=== PATIENT | male | born 1985 | race African-American/Black ===

== ENCOUNTER 2022-01-27 09:12 | Emergency (ER) | payer MEDICAID, OTHER, SELFPAY ==
[2022-01-27 09:28] VITALS: BP 115/78; PULSE 77; RESP 14; TEMP 36.8; O2SAT 100
[2022-01-27 09:32] VITALS: BMI 29.0
[2022-01-27 09:35] LABS: Glucose, Whole Blood 255 mg/dL (60-115)
--- NOTE | 2022-01-27 09:45 | ED.GENADULT ---
HPI - General Adult General Chief complaint: General Medical Stated complaint: ?HBP Dizzy Lightheaded Headache Time Seen by Provider: 01/27/22 09:29 Source: patient Mode of arrival: ambulatory Limitations: no limitations History of Present Illness HPI narrative: 28-year-old noncompliant diabetic presents to emergency department concerned his blood pressure is elevated. He states he feels fatigued and does not feel well. He states this started last night after eating spicy foods states he has no abdominal pain he has no nausea vomiting he denies any falls or injuries he states he is on diabetic medications but has not filled his prescription. Patient states she just feels off. He has no headache he has no fever is no cough. Related Data Allergies Allergy/AdvReac Type Severity Reaction Status Date / Time No Known Allergies Allergy Verified 01/27/22 09:41 Review of Systems Review of Systems: Review of systems: General: Patient denies any fever chills recent illness or falls Musculoskeletal: Denies back pain or body aches or other injuries HEENT: denies headache, runny nose, ear pain Respiratory: denies shortness of breath, cough Cardiovascular: no chest pain or palpitations : denies dysuria, frequency Abdomen: no nausea vomiting denies abdominal pain Extremities: no swelling, no pain Skin: no diaphoresis Yes all other systems are reviewed and are negative Physical Exam ED Vital Signs: Vital Signs - 24 hr 01/27/22 09:28 Temperature 98.3 F Pulse Rate 77 Respiratory Rate 14 Blood Pressure 115/78 Pulse Oximetry 100 Oxygen Delivery Method Room Air BMI result Body Mass Index 29.0 General: Well-appearing well-nourished in no signs of distress HEENT: Normocephalic atraumatic Neck: No signs of JVD, no masses no tenderness or lymphadenopathy Cardiovascular: Regular rate and rhythm Respiratory: Clear to auscultation bilaterally Abdomen: Soft non tender no masses Extremities: Normal pedal pulses no signs of edema Skin: Dry warm no rashes Back: No tenderness full ROM Medical Decision Making Medical Decision Making MDM Narrative: Patient here requesting to have his A1C checked. I explained the need to start his diabetic medications and to see his PCP. I have no reason to send off A1C with his story. He would benefit from better control of his blood sugar but he has a reassuring story no signs of DKA. I will send home. I see no reason for further testing or labs. Differential Diagnosis Differential Diagnoses: The differential diagnosis associated with the presentation includes Hyperglycemia due to diabetic noncompliance, Dka though unlikely he looks well . Admission/Observation Consideration of admission/observation: Escalation of care including admission/observation considered Not necessary looks well. Lab Data Labs: Lab Results 01/27/22 Range/Units 09:30 POC Glucose 255 H (60-115) mg/dL Discharge Plan Discharge Clinical Impression: Acute hyperglycemia Patient Disposition: Home, Self-Care Instructions: Diabetic Hyperglycemia (ED) Additional Instructions: Please call to follow up with your doctor. 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 Your blood sugar is elevated so please be careful with what you are eating. If you have any other concerns please return to the eD.
== END 2022-01-27 10:15 | disposition home or self-care (01) ==
PROVIDERS: Emergency Provider Student in an Organized Health Care Education/Training Program
DX: E11.65 Type 2 diabetes mellitus with hyperglycemia (principal); Z91.14 Patient's other noncompliance with medication regimen
CPT/HCPCS: 82947; 99283

== ENCOUNTER 2024-04-14 09:42 | Emergency (ER) | payer SELFPAY ==
--- NOTE | ~2024-04-14 | XR_ITS ---
EXAMINATION: XR CHEST 2 VIEWS HISTORY: CP COMPARISON: There are no prior studies for comparison. FINDINGS: PA and lateral views of the chest are submitted. The lungs are expanded and clear. There is no pleural effusion, pneumothorax, or pulmonary vascular congestion. The heart is normal in size. The bones are intact. XR/XR chest 2V IMPRESSION: Normal examination of the chest. Electronically signed by: Jerry Shepard MD 04/14/2024 10:35 AM [facility]
--- NOTE | 2024-04-14 09:45 | ECG_ITS ---
Test Reason : cp Blood Pressure : */* mmHG Vent. Rate : 88 BPM Atrial Rate : 88 BPM P-R Int : 176 ms QRS Dur : 74 ms QT Int : 346 ms P-R-T Axes : 61 13 28 degrees QTcB Int : 418 ms Normal sinus rhythm Normal ECG No previous ECGs available Referred By: Generic ED Physician Electronically Signed By: RUY RODAS MD
[2024-04-14 09:54] VITALS: BP 129/73; PULSE 82; RESP 16; TEMP 36.3; O2SAT 99; BMI 29.2
[2024-04-14 09:57] LABS: MANUAL DIFF FLAG NO
[2024-04-14 10:01] LABS: Basophils Percent Auto 0.5 % (0-2); Eosinophils Absolute Auto 0.1 X10*3/uL (0.0-0.4); Eosinophils Percent Auto 1.6 % (0-4); Imm Gran Abs Auto 0.07 X10*3/uL (0.00-0.03); Imm Gran Pct Auto 0.8 % (0.0-0.4); Lymphocytes Absolute Auto 1.9 X10*3/uL (1.2-4.9); Lymphocytes Percent Auto 21.8 % (20-40); Mean Corpuscular HGB Conc 31.8 g/dl (31.0-36.0); Mean Corpuscular Hemoglobin 22.2 pg (27.0-33.0); Mean Corpuscular Volume 69.8 fL (80.0-98.0); Mean Platelet Volume 10.9 fL (9.4-12.4); Monocytes Absolute Auto 0.6 X10*3/uL (0.1-1.2); Monocytes Percent Auto 6.9 % (2-11); Neutrophils Percent Auto 68.4 % (45-73); Platelet Count 318 X10*3/uL (160-400); White Blood Count 8.7 X10*3/uL (4.8-10.8)
[2024-04-14 10:13] LABS: Anion Gap 14 (12-20); Blood Urea Nitrogen 15 mg/dL (9-16); Carbon Dioxide 25 mmol/L (22-29); Chloride 103 mmol/L (96-108); Creatinine Clr Calc Pharmacy 82.2; Estimated Glomerular Filt Rate > 60; Glucose Random 323 mg/dL (60-115); Sodium 138 mmol/L (135-145)
[2024-04-14 10:22] LABS: Troponin-I High Sensitivity < 2.7 ng/L (<3.5-35.0)
--- NOTE | 2024-04-14 11:07 | ED_ITS ---
HPI - Chest Pain General Chief Complaint: Chest Pain Stated Complaint: CP, heartburn Time Seen by Provider: 04/14/24 11:07 Source: patient Mode of arrival: ambulatory Limitations: no limitations History of Present Illness ED Provider: RHODA ROCKWELL narrative: 38 yo male with PMH of DM, no known issues with CAD and no early family CAD. He recently had the GI bug. He has no nausea, dyspnea. No recent travel, procedures. No hx of blood clots. He notes it hurts to move and comes and goes like a throb on the L sided of chest. No trauma reported. He denies fevers, coughing. He has no pain right now. MD complaint: chest pain Onset (ago): day(s) (2) Timing of current episode: episodic Prior episodes: Yes Onset: other (moving chest and moving torso) Pain location: left chest Pain radiation: none Severity: moderate Quality: other (throbbing) Relieving factors: nothing Exacerbating factors: movement Treatment prior to arrival: none Related Data Allergies Allergy/AdvReac Type Severity Reaction Status Date / Time No Known Allergies Allergy Verified 04/14/24 09:55 Review of Systems 2 Review of Systems: Constitutional : No Weight loss, No Fever, No Chills ENT/Mouth : No sore throat, No Rhinorrhea Eyes: No Eye Pain, No Swelling Cardiovascular : pos Chest Pain, no SOB, no Dyspnea on Exertion, No Orthopnea, No Edema, No Palpitations Respiratory : No Cough, No Sputum Gastrointestinal : no Nausea, No Vomiting, No Diarrhea, No abdominal Pain, No Hematochezia, No Melena Genitourinary : No Dysuria, No Urinary Frequency Musculoskeletal : No joint pain, No Myalgias, No Joint Swelling Skin : No Skin Lesions, No rash Neuro : No Weakness, No Numbness, No Dizziness, No Headache All other systems reviewed and are negative [facility] Past Medical History Attestation statement: The following information was validated with the patient. Source: old records reviewed Medical History (Updated 04/14/24 @ 11:20 by Yvonne Leroy DO) T2DM (type 2 diabetes mellitus) Social History Social History (Updated 04/14/24 @ 11:20 by Yvonne Leroy DO) Patient Tobacco Use Status: Never used Tobacco Advance Directives: No Advance Directives Information Provided: Yes Physical Exam 2 Vital Signs: Vital Signs: Last Vital Signs Temp 97.3 F 04/14/24 11:13 Pulse 82 04/14/24 11:13 Resp 16 04/14/24 11:13 BP 129/73 04/14/24 11:13 Pulse Ox 99 04/14/24 11:13 O2 Del Method Room Air 04/14/24 11:13 BMI result Body Mass Index 29.2 Appearance: Alert. Oriented X3. No acute distress. Eyes: Pupils equal, round and reactive to light. ENT: Pharynx normal. Neck: Normal inspection. Neck supple. CVS: Normal heart rate and rhythm. Pulses normal. Respiratory: No respiratory distress. Breath sounds normal. Abdomen: Soft and nontender. Skin: Skin warm and dry. Normal skin color. Normal skin turgor. Extremities: No lower extremity edema. No calf ttp Neuro: Oriented X 3. No motor deficit. No sensory deficit. CN2-12 intact Medical Decision Making Medical Decision Making [facility] Narrative: 38 yo male with PMH of DM here with c/o chest wall throbbing with movements at this time seems very atypical for ACS and he has no other symptoms. He is PERC negative, atypical for dissection and his pulses are intact. At this time given his DM I am going to obtain EKG, CXR, troponin. He has a PCP he can follow up with HEART SCORE 1 Differential Diagnosis Differential Diagnoses: The differential diagnosis associated with the presentation includes atyipcal chest pain, MSK chest wall pain PERC negative doubt VTE pulses intact doubt dissection Admission/Observation Consideration of admission/observation: Escalation of care including admission/observation considered work up reassuring stable for DC Lab Data [facility] Lab Attestation statement: I reviewed the patient's lab results. 04/14/24 09:51 04/14/24 09:51 Labs: Lab Results 04/14/24 Range/Units 09:51 WBC 8.7 (4.8-10.8) X10*3/uL RBC 6.30 H (4.60-5.80) X10*6/uL Hgb 14.0 (14.0-18.0) g/dl Hct 44.0 (42.0-52.0) % MCV 69.8 L (80.0-98.0) fL MCH 22.2 L (27.0-33.0) pg MCHC 31.8 (31.0-36.0) g/dl RDW 17.0 H (11.0-16.0) % Plt Count 318 (160-400) X10*3/uL MPV 10.9 (9.4-12.4) fL Immature Gran % (Auto) 0.8 H (0.0-0.4) % Neut % (Auto) 68.4 (45-73) % Lymph % (Auto) 21.8 (20-40) % Starke % (Auto) 6.9 (2-11) % Eos % (Auto) 1.6 (0-4) % Baso % (Auto) 0.5 (0-2) % Lymph # (Auto) 1.9 (1.2-4.9) X10*3/uL Starke # (Auto) 0.6 (0.1-1.2) X10*3/uL Eos # (Auto) 0.1 (0.0-0.4) X10*3/uL Baso # (Auto) 0.0 (0.0-0.2) X10*3/uL Abs Immat Gran (auto) 0.07 H (0.00-0.03) X10*3/uL Absolute Neuts (auto) 6.0 (2.0-8.3) x10*3/uL Absolute Nucleated RBC 0.000 (0.0-0.012) X10*3/uL Nucleated RBC % (auto) 0.0 (0.0-0.2) /100WBC Sodium 138 (135-145) mmol/L Potassium 4.0 (3.3-5.1) mmol/L Chloride 103 (96-108) mmol/L Carbon Dioxide 25 (22-29) mmol/L Anion Gap 14 (12-20) BUN 15 (9-16) mg/dL Creatinine 1.12 (0.5-1.4) mg/dL Estim Creat Clear Calc 82.2 Estimated GFR > 60 Random Glucose 323 H (60-115) mg/dL Calcium 9.0 (8.4-10.2) mg/dL Troponin I High Sens < 2.7 (<3.5-35.0) ng/L Independent Interpretation I performed an independent interpretation of an: EKG and Plain X-Ray (normal ) Interpretation: Rate: 88 Rhythm: NSR [place]: normal Normal P waves. Normal DARCIE. Normal QRS complex. ST T wave : no DAGOBERTO, inverted t wave III qTC: 418 prior studies: no acute ischemia The study has been interpreted contemporaneously by me. . Radiology Impression Discussion of test interpretation with radiology: I have reviewed the radiologist's reading. External Record Review External record reviewed: Outpatient record Discharge Plan Discharge Clinical Impression: Atypical chest pain Patient Disposition: Home, Self-Care Instructions: Chest Pain (ED) Additional Instructions: work up reassuring today other than blood sugar high please take care of your diabetes better return for worsening symptoms or concerns such as increased pain or trouble breathing please follow up your primar care doctor in the next 1 to 2 weeks. Interventions: ED Discharge Assessment Last Done: 04/14/24 11:13 Discharge Date/Time: 04/14/24 11:18 Print Language: Argentine
[2024-04-14 11:13] VITALS: BP 129/73; PULSE 82; RESP 16; TEMP 36.3; O2SAT 99
== END 2024-04-14 11:18 | disposition home or self-care (01) ==
LOC: HO.ED 11:14
PROVIDERS: Emergency Provider Emergency Medicine
DX: R07.89 Other chest pain (principal); E11.9 Type 2 diabetes mellitus without complications
CPT/HCPCS: 36415; 71046; 80048; 84484; 85025; 93005; 99283

== ENCOUNTER → 2024-04-14 09:45 | Outpatient (BNV) | payer SELFPAY | PROVIDERS: Emergency Provider Emergency Medicine; Visit Provider Internal Medicine Cardiovascular Disease | DX: R07.9 Chest pain, unspecified (principal) | CPT/HCPCS: 93010 ==

== ENCOUNTER → 2024-04-14 09:45 | Outpatient (BNV) | payer MEDICAID, SELFPAY | PROVIDERS: Visit Provider Radiology Diagnostic Radiology | DX: R07.9 Chest pain, unspecified (principal) | CPT/HCPCS: 71046 ==